=== PATIENT | female | born 1990 | race Caucasian/White ===

== ENCOUNTER 2018-02-14 02:02 | Outpatient (CLI) | payer OTHER | END 2018-02-14 02:03 | disposition critical access hospital (66) | LOC: EMS 02:02 | PROVIDERS: ATTEND Surgery | DX: R10.9 Unspecified abdominal pain (principal) | CPT/HCPCS: A0425; A0427 ==

== ENCOUNTER 2018-02-14 02:24 | Emergency (ER) | payer OTHER ==
[2018-02-14] MEDS ORDERED: SODIUM CHLORIDE 0.9% 1,000 ML IV ONE (02:35)
[2018-02-14] MEDS ORDERED: fentaNYL 100 MCG/2 ML VIAL IVP STA (02:46)
[2018-02-14] MEDS ORDERED: ONDANSETRON 4 MG/2 ML VIAL IVP STA (02:46)
[2018-02-14] MEDS ORDERED: IOPAMIDOL-300 100 ML VIAL ONE (02:51)
[2018-02-14] MEDS ORDERED: IOPAMIDOL-300 50 ML VIAL ONE (02:51)
[2018-02-14 02:53] LABS: BASOPHILS # (AUTO) 0.2 10^3/uL (0.0-0.1); BASOPHILS % (AUTO) 2.1 %; EOSINOPHILS # (AUTO) 0.3 10^3/uL (0.0-0.7); HGB - HEMOGLOBIN 12.3 g/dL (12.0-16.0); LYMPHOCYTES # (AUTO) 2.5 10^3/uL (1.5-3.5); MEAN CORPUSCULAR HGB CONC 33.4 g/dL (32.0-36.0); MEAN PLATELET VOLUME 7.7 fL (7.9-10.8); MONOCYTES # (AUTO) 0.6 10^3/uL (0.0-1.0); MONOCYTES % (AUTO) 6.5 %; NEUTROPHILS # (AUTO) 5.5 10^3/uL (1.5-6.6); NEUTROPHILS % (AUTO) 60.4 %; PLT - PLATELET COUNT 239 10^3/uL (130-450); RED BLOOD COUNT 4.23 10^6/uL (4.20-5.40); RED CELL DISTRIBUTION WIDTH 13.5 % (12.0-15.0)
--- NOTE | 2018-02-14 02:56 | ED Physician Documentation ---
PD HPI ABD PAIN - Stated complaint Stated Complaint: ABD PAIN - Chief complaint Chief Complaint: Abd Pain - History obtained from History obtained from: Patient - History of Present Illness Timing - onset: How many hours ago (Symptoms started one half hours ago) Timing - details: Abrupt onset Severity Comments: Moderate Quality: Cramping, Other (The patient reports a pressure throughout her epigastrium) Location: Epigastric Radiation: Other (No radiation) Improved by: Other (Improved by nothing) Worsened by: Other Associated symptoms: Nausea. No: Fever, Vomiting Similar symptoms before: No diagnosis Recently seen: Not recently seen - Additional information Additional information: 27-year-old female with one and half hours of abdominal pain in her epigastrium which she describes as a upper abdomen cramping squeezing pain. The pain awoke her from sleep. No triggering factors. No relieving factors Review of Systems Constitutional: denies: Fever, Chills Eyes: denies: Discharge Ears: denies: Ear pain Nose: denies: Congestion Throat: denies: Sore throat Cardiac: denies: Chest pain / pressure, Palpitations Respiratory: denies: Cough GI: reports: Abdominal Pain, Nausea. denies: Vomiting, Diarrhea : denies: Dysuria Skin: denies: Laceration (s) Musculoskeletal: denies: Neck pain Neurologic: denies: Generalized weakness Immunocompromised: denies: Chemotherapy PD PAST MEDICAL HISTORY - Past Medical History Past Medical History: No Cardiovascular: None Respiratory: None Neuro: None Endocrine/Autoimmune: None GI: None MOTEL OPERATOR: None : None HEENT: None Psych: None Musculoskeletal: None Derm: None Other Past Medical History: MOTHER FROM PE X 16 yrs ago... - Past Surgical History Past Surgical History: Yes General: Other /MOTEL OPERATOR: section - Allergies Allergies/Adverse Reactions: Allergies Allergy/AdvReac Type Severity Reaction Status Date / Time amoxicillin AdvReac Rash Verified 02/14/18 02:32 - Social History Does the pt smoke?: No Smoking Status: Never smoker Does the pt drink ETOH?: No Does the pt have substance abuse?: No - Immunizations Immunizations are current?: Yes - POLST Patient has POLST: No PD ED PE NORMAL - General General: Alert and oriented X 3, No acute distress - HEENT HEENT: Atraumatic, PERRL, EOMI, Ears normal - Neck Neck: Supple, no meningeal sign - Cardiac Cardiac: RRR, Strong equal pulses - Respiratory Respiratory: No respiratory distress, Clear bilaterally - Abdomen Abdomen: Soft, Non distended, Other (Tender to palpation in the upper abdomen, no rebound or peritoneal signs.) - Derm Derm: Normal color - Extremities Extremities: No deformity, Normal ROM s pain - Neuro Neuro: Alert and oriented X 3, Normal speech - Psych Psych: Normal mood Results - Vitals Vitals: Vital Signs - 24 hr 02/14/18 02/14/18 02/14/18 02:28 02:30 02:32 Temperature 36.1 C L Heart Rate 63 69 Respiratory 22 18 19 Rate Blood Pressure 131/74 H 125/82 H O2 Saturation 100 100 02/14/18 02/14/18 02/14/18 03:01 03:07 03:15 Temperature Heart Rate 63 73 69 Respiratory 16 17 16 Rate Blood Pressure 125/82 H 105/76 O2 Saturation 100 100 100 02/14/18 02/14/18 03:41 04:37 Temperature Heart Rate 66 Respiratory 16 17 Rate Blood Pressure 106/64 O2 Saturation 100 98 Oxygen O2 Source Room air - Labs Labs: Laboratory Tests 02/14/18 02/14/18 02/14/18 02:45 02:45 02:45 WBC 9.0 RBC 4.23 Hgb 12.3 Hct 36.8 L MCV 87.0 MCH 29.0 MCHC 33.4 RDW 13.5 Plt Count 239 MPV 7.7 L Neut # (Auto) 5.5 Lymph # (Auto) 2.5 [place] # (Auto) 0.6 Eos # (Auto) 0.3 Baso # (Auto) 0.2 H Absolute Nucleated RBC 0.00 Nucleated RBC % 0.0 Sodium 138 Potassium 3.1 L Chloride 106 Carbon Dioxide 23 Anion Gap 9.0 BUN 17 Creatinine 0.6 Estimated GFR (MDRD) 118 Glucose 126 H Calcium 8.8 Magnesium 2.0 Total Bilirubin 0.6 AST 90 H ALT 50 Alkaline Phosphatase 100 Troponin I < 0.04 Total Protein 6.8 Albumin 3.9 Globulin 2.9 Albumin/Globulin Ratio 1.3 Lipase 37 Urine Color Urine Clarity Urine pH Ur Specific [place] Urine Protein Urine Glucose (UA) Urine Ketones Urine Occult Blood Urine Nitrite Urine Bilirubin Urine Urobilinogen Ur Leukocyte Esterase Urine RBC Urine WBC Ur Squamous Epith Cells Urine Bacteria Ur Microscopic Review Urine Culture Comments 02/14/18 03:50 WBC RBC Hgb Hct MCV MCH MCHC RDW Plt Count MPV Neut # (Auto) Lymph # (Auto) [place] # (Auto) Eos # (Auto) Baso # (Auto) Absolute Nucleated RBC Nucleated RBC % Sodium Potassium Chloride Carbon Dioxide Anion Gap BUN Creatinine Estimated GFR (MDRD) Glucose Calcium Magnesium Total Bilirubin AST ALT Alkaline Phosphatase Troponin I Total Protein Albumin Globulin Albumin/Globulin Ratio Lipase Urine Color YELLOW Urine Clarity CLEAR Urine pH 7.5 Ur Specific [place] 1.010 Urine Protein NEGATIVE Urine Glucose (UA) NEGATIVE Urine Ketones NEGATIVE Urine Occult Blood NEGATIVE Urine Nitrite NEGATIVE Urine Bilirubin NEGATIVE Urine Urobilinogen 0.2 (NORMAL) Ur Leukocyte Esterase TRACE H Urine RBC 0-5 Urine WBC 4-5 Ur Squamous Epith Cells RARE Squamous Urine Bacteria Few Ur Microscopic Review INDICATED Urine Culture Comments INDICATED - Rads (name of study) CT Abdomen pelvis Radiology: Final report received (Impression: No acute inflammatory obstructive process in the abdomen or pelvis 2. Nonobstructing small stones in both kidneys 3 moderate stool in the colon) PD MEDICAL DECISION MAKING - ED course ED course: On reevaluation the patient is resting comfortably and her symptoms are under much better control. The patient's workup does not reveal an acute etiology that would necessitate admission to the hospital or acute surgical consultation. The patient appears appropriate for discharge and further workup as an outpatient. I discussed warning signs and recommended returning to the emergency department immediately for worsening or any concerns. - Sepsis Event Vital Signs: Vital Signs - 24 hr 02/14/18 02/14/18 02/14/18 02:28 02:30 02:32 Temperature 36.1 C L Heart Rate 63 69 Respiratory 22 18 19 Rate Blood Pressure 131/74 H 125/82 H O2 Saturation 100 100 02/14/18 02/14/18 02/14/18 03:01 03:07 03:15 Temperature Heart Rate 63 73 69 Respiratory 16 17 16 Rate Blood Pressure 125/82 H 105/76 O2 Saturation 100 100 100 02/14/18 02/14/18 03:41 04:37 Temperature Heart Rate 66 Respiratory 16 17 Rate Blood Pressure 106/64 O2 Saturation 100 98 Oxygen O2 Source Room air Departure - Departure Disposition: 01 Home, Self Care Clinical Impression: Abdominal pain Qualifiers: Abdominal location: unspecified location Qualified Code(s): R10.9 - Unspecified abdominal pain Condition: Good Instructions: Abdominal Pain, ED Abdominal Pain Unkn Cause Comments: Please follow-up with primary care for further workup and management of your symptoms. You may require a referral to GI from primary care. Please return to the emergency department immediately for worsening symptoms or any concerns
[2018-02-14 03:04] LABS: ALBUMIN 3.9 g/dL (3.2-5.5); ALBUMIN/GLOBULIN RATIO 1.3 (1.0-2.2); BILIRUBIN,TOTAL 0.6 mg/dL (0.2-1.0); CALCIUM 8.8 mg/dL (8.5-10.3); CREATININE 0.6 mg/dL (0.4-1.0); TOTAL PROTEIN 6.8 g/dL (6.7-8.2)
[2018-02-14] MEDS ORDERED: POTASSIUM CHLORIDE 20 MEQ TABLET PO STA (03:27)
[2018-02-14 04:00] LABS: BILIRUBIN,URINE NEGATIVE (NEGATIVE); GLUCOSE, URINE (UA) NEGATIVE (NEGATIVE); KETONES,URINE (UA) NEGATIVE (NEGATIVE); LEUKOCYTE ESTERASE, URINE TRACE (NEGATIVE); NITRITE,URINE NEGATIVE (NEGATIVE); OCCULT BLOOD,URINE NEGATIVE (NEGATIVE); PH,URINE 7.5 PH (5.0-7.5); PROTEIN,URINE NEGATIVE (NEGATIVE); UROBILINOGEN,URINE 0.2 (NORMAL) E.U./dL (NORMAL)
[2018-02-14 04:07] LABS: CLARITY,URINE CLEAR (CLEAR)
[2018-02-14] MEDS ORDERED: IOPAMIDOL-300 50 ML VIAL PO ONE (04:18)
[2018-02-14] MEDS ORDERED: IOPAMIDOL-300 100 ML VIAL IVP ONE (04:18)
[2018-02-14 04:25] LABS: BACTERIA,URINE Few /HPF (None Seen); RBC,URINE 0-5 /HPF (0-5); SQUAMOUS EPITHELIAL CELL,UR RARE Squamous (<= Few)
--- NOTE | 2018-02-14 04:46 | CT Report ---
Procedure Date: 02/14/2018 Accession Number: [id number] / [id number] Procedure: CT - Abdomen/Pelvis W/ CPT Code: FULL RESULT: EXAM: CT ABDOMEN AND PELVIS EXAM DATE: 02/14/2018 04:33 AM. CLINICAL HISTORY: Abdominal pain. COMPARISONS: None. TECHNIQUE: Routine helical CT imaging was performed through the abdomen and pelvis. IV contrast: ISOVUE 300 100mL. Enteric contrast: No. Reconstructions: Coronal and sagittal. In accordance with CT protocol optimization, one or more of the following dose reduction techniques were utilized for this exam: automated exposure control, adjustment of mA and/or KV based on patient size, or use of iterative reconstructive technique. FINDINGS: Lung Bases: Unremarkable. Liver: No focal abnormalities seen. Gallbladder/Bile Ducts: Unremarkable. Spleen: Normal. Pancreas: Normal. Adrenal Glands: Normal. Kidneys: Right kidney shows small cysts. At least one or 2 small nonobstructing stones are seen in the right kidney. No ureteral stone identified. Left kidney shows small cysts. At least 2 small nonobstructing left renal stones are seen. No ureteral stone identified. Peritoneal Cavity/Bowel: No bowel obstruction seen. Moderate stool in the colon. No diverticulitis. No free air or free fluid. No lymphadenopathy. Appendix appears normal. Pelvic Organs: Normal. The bladder and visualized pelvic organs are within normal limits. Vasculature: No aneurysms or other significant abnormality. Bones: No significant abnormality. Other: None. IMPRESSION: 1. No acute inflammatory or obstructive process seen in the abdomen or pelvis. 2. Small nonobstructing stones in both kidneys. 3. Moderate stool in the colon. [facility]
[2018-02-14 05:18] VITALS: BP 106/64
== END 2018-02-14 05:05 | disposition home or self-care (01) ==
LOC: ED 02:24
DX: R10.10 Upper abdominal pain, unspecified (principal); N20.0 Calculus of kidney; I45.10 Unspecified right bundle-branch block; Z83.2 Family history of diseases of the blood and blood-forming organs and certain disorders involving the immune mechanism
CPT/HCPCS: 36415; 74177; 80053; 81001; 83690; 83735; 84484; 85025; 87086; 87181; 93005; 96361; 96374; 99283; 99284; A9270; Q9967; 81003